=== PATIENT | female | born 1960 | race Two or more races ===

== ENCOUNTER → 2017-11-04 | Outpatient (CLI) | payer OTHER | LOC: M WHC 13:59 | DX: E55.9 Vitamin D deficiency, unspecified (principal); M81.0 Age-related osteoporosis without current pathological fracture | CPT/HCPCS: 77080 ==

== ENCOUNTER → 2019-10-15 | Outpatient (CLI) | payer OTHER ==
[~2019-10-15] MED LIST: FOSA70TA PO; LOVE1INJ SC; PERC5TAB12 PO; TYLE325T5 PO; VITA-110 PO
--- NOTE | 2019-10-20 13:21 | DEXA ---
AP SPINE L1 - L4 0.949 -2.0 -0.9 LT FEMUR TOTAL Left hip replacement. LT NECK Left hip replacement. RT FEMUR TOTAL 0.959 -0.4 0.5 RT NECK 0.863 -1.3 -0.1 TOTAL BODY TOTAL OTHER COMMENTS: There is low bone density of the spine. There is low bone density of the right hip. The density of the spine has decreased 1.7% since the initial exam on 09/09/2001. The spine density has decreased 0.2% since the most recent exam on 11/04/2017. The density of the right hip has increased 5.4% since the initial exam on 09/09/2001. The density of the right hip has decreased 0.4% since the most recent exam on 11/04/2017. FOLLOW-UP: Recommendation for the next bone density exam: 2 years. ISABELLA
== END ==
LOC: M WHC 11:10
PROVIDERS: ATTEND Family Medicine
DX: M85.80 Other specified disorders of bone density and structure, unspecified site (principal); Z96.642 Presence of left artificial hip joint

== ENCOUNTER → 2021-11-06 | Outpatient (CLI) | payer OTHER | LOC: M WHC 09:01 | PROVIDERS: ATTEND Family Medicine | DX: Z12.31 Encounter for screening mammogram for malignant neoplasm of breast (principal); M85.851 Other specified disorders of bone density and structure, right thigh ==

== ENCOUNTER → 2024-03-30 | Outpatient (CLI) | payer OTHER ==
[~2024-03-30] MED LIST changes: +ALEN70TA87 PO; -FOSA70TA PO
== END ==
LOC: M WHC 11:16
PROVIDERS: ATTEND Internal Medicine Endocrinology, Diabetes & Metabolism
DX: Z12.31 Encounter for screening mammogram for malignant neoplasm of breast (principal); M83.1 Senile osteomalacia

== ENCOUNTER → 2024-03-30 | Outpatient (CLI) | payer OTHER | LOC: M WHC 11:14 | PROVIDERS: ATTEND Nurse Practitioner Primary Care | DX: Z12.31 Encounter for screening mammogram for malignant neoplasm of breast (principal) ==